=== PATIENT | female | born 1950 ===

== ENCOUNTER 2017-03-12 12:23 | Outpatient (CLI) | payer OTHER | END 2017-03-12 12:26 | disposition home or self-care (01) | LOC: MAMO-SONO 12:23 | DX: N64.89 Other specified disorders of breast (principal) ==

== ENCOUNTER → 2018-04-28 | Outpatient (CLI) | payer OTHER | END | disposition home or self-care (01) | LOC: MAMO-SONO 08:45 | DX: Z12.31 Encounter for screening mammogram for malignant neoplasm of breast (principal); Z87.898 Personal history of other specified conditions; N60.11 Diffuse cystic mastopathy of right breast; N60.12 Diffuse cystic mastopathy of left breast ==

== ENCOUNTER 2019-05-03 12:24 | Outpatient (CLI) | payer OTHER | END 2019-05-03 12:33 | disposition home or self-care (01) | LOC: MAMO-SONO 12:24 | DX: Z12.31 Encounter for screening mammogram for malignant neoplasm of breast (principal); Z87.898 Personal history of other specified conditions; N60.11 Diffuse cystic mastopathy of right breast; N60.12 Diffuse cystic mastopathy of left breast ==

== ENCOUNTER 2019-09-07 11:58 | Outpatient (CLI) | payer OTHER | END 2019-09-07 12:05 | disposition home or self-care (01) | LOC: NUCLEAR 11:58 | DX: M85.89 Other specified disorders of bone density and structure, multiple sites (principal); N95.2 Postmenopausal atrophic vaginitis ==

== ENCOUNTER 2020-01-14 12:42 | Outpatient (CLI) | payer OTHER | END 2020-01-14 13:00 | disposition home or self-care (01) | LOC: RAD 12:42 | DX: M51.37 Other intervertebral disc degeneration, lumbosacral region (principal); M43.8X5 Other specified deforming dorsopathies, thoracolumbar region ==

== ENCOUNTER 2020-03-31 11:56 | Outpatient (CLI) | payer OTHER | END 2020-03-31 12:09 | disposition home or self-care (01) | LOC: SONOGRAMA 11:56 | PROVIDERS: ATTEND Surgery | DX: N60.01 Solitary cyst of right breast (principal); N60.11 Diffuse cystic mastopathy of right breast; N60.12 Diffuse cystic mastopathy of left breast ==

== ENCOUNTER 2020-06-07 13:20 | Outpatient (CLI) | payer OTHER | END 2020-06-07 13:32 | disposition home or self-care (01) | LOC: MAMO-SONO 13:20 | PROVIDERS: ATTEND Surgery | DX: N60.11 Diffuse cystic mastopathy of right breast (principal); N60.12 Diffuse cystic mastopathy of left breast; Z12.31 Encounter for screening mammogram for malignant neoplasm of breast; Z87.898 Personal history of other specified conditions ==

== ENCOUNTER 2021-06-18 12:56 | Outpatient (CLI) | payer OTHER | END 2021-06-18 13:10 | disposition home or self-care (01) | LOC: MAMO-SONO 12:56 | PROVIDERS: ATTEND Surgery | DX: N60.11 Diffuse cystic mastopathy of right breast (principal); N60.12 Diffuse cystic mastopathy of left breast ==